=== PATIENT | female | born 1985 | race Caucasian/White ===

== ENCOUNTER 2024-11-14 08:25 | Emergency (ER) | payer SELFPAY ==
[~2024-11-14] VITALS: Ht 157.5 cm; Wt 79.0 kg
[2024-11-14 08:30] VITALS: O2SAT 99
[2024-11-14 08:34] VITALS: BP 110/71; PULSE 74; RESP 16; TEMP 36.7; O2SAT 98
[2024-11-14] MEDS: FLUORESCEIN SODIUM 1MG/STRIP RIGHTEYE ONE (11:43)
[2024-11-14] MEDS: TETRACAINE 0.5% OPHTH DROPS 4ML RIGHTEYE ONE (11:44)
[2024-11-14] MEDS ORDERED: PROP1DRO2 MT (11:57)
[2024-11-14] MEDS ORDERED: GENT5DRO38 RIGHTEYE (11:57)
[2024-11-14 12:02] VITALS: TEMP 98
[2024-11-14] MEDS: ACETAMINOPHEN 325MG TABLET PO ONE (12:02)
== END 2024-11-14 12:19 | disposition home or self-care (01) ==
LOC: ER 08:25
DX: S05.31XA Ocular laceration without prolapse or loss of intraocular tissue, right eye, initial encounter (principal); H57.11 Ocular pain, right eye; W44.8XXA Other foreign body entering into or through a natural orifice, initial encounter; Y93.89 Activity, other specified; Y92.89 Other specified places as the place of occurrence of the external cause; Y99.8 Other external cause status
CPT/HCPCS: 99283; 99284